=== PATIENT | female | born 1940 | race Caucasian/White ===

== ENCOUNTER 2021-04-14 08:41 | Outpatient (CLI) | payer MEDICARE | END 2021-04-14 08:42 | disposition home or self-care (01) | LOC: BICRAD 08:41 | PROVIDERS: ATTEND Internal Medicine Critical Care Medicine | DX: R06.00 Dyspnea, unspecified (principal); I50.9 Heart failure, unspecified; I70.0 Atherosclerosis of aorta | CPT/HCPCS: 71046 ==

== ENCOUNTER 2021-06-16 12:47 | Outpatient (CLI) | payer MEDICARE ==
[2021-06-16 14:23] LABS: #Eosinphils 0.1 10x3/uL (0.0-0.5); #Monocytes 0.6 10x3/uL (0.0-1.1); #Neutrophils 4.3 10x3/uL (1.5-8.4); %Basophils 0.5 % (0.0-2.0); %Eosinophils 1.7 % (0.0-6.0); %Lymphocytes 22.8 % (18.0-47.0); %Monocytes 8.8 % (0.0-10.0); %Neutrophils 65.9 % (40.0-75.0); Hemoglobin 12.5 g/dL (12.0-15.5); Mean Corpuscular HGB CONC 32.9 g/dL (32.0-36.0); Mean Corpuscular Hemoglobin 31.3 pg (27.0-33.0); Mean Corpuscular Volume 95.2 fl (81.6-98.3); Mean Platelet Volume 9.6 fl (7.4-10.4); Platelet Count 230 10x3/uL (150-450); Red Blood Cell (RBC) Count 3.99 10x6/uL (3.90-5.03); White Blood Cell (WBC) Count 6.5 10x3/uL (3.5-10.5)
[2021-06-16 14:55] LABS: ALT (SGPT) 15 U/L (8-55); AST (SGOT) 18 U/L (5-34); Albumin 4.1 g/dL (3.4-4.8); Alkaline Phosphatase 41 U/L (40-110); Anion Gap 15 mmol/L (10-20); BUN (Urea Nitrogen) 80 mg/dL (9.8-20.1); Bilirubin, Total 0.5 mg/dL (0.2-1.2); Calc. Creatinine Clearance 0 mL/min (70-130); Calcium 10.4 mg/dL (7.8-10.44); Carbon Dioxide 28 mmol/L (23-31); Chloride 100 mmol/L (98-107); Globulin 2.7 g/dL (2.4-3.5); Glucose 219 mg/dL (83-110); Potassium 3.6 mmol/L (3.5-5.1); Protein, Total 6.8 g/dL (5.8-8.1); Sodium 139 mmol/L (136-145)
[2021-06-17 11:15] LABS: SARS-CoV-2 PCR by NAA Not Detected (NotDetected)
== END 2021-06-16 12:48 | disposition home or self-care (01) ==
LOC: LABBT 12:47
PROVIDERS: ATTEND Surgery
DX: Z01.818 Encounter for other preprocedural examination (principal); C50.912 Malignant neoplasm of unspecified site of left female breast; Z20.822 Contact with and (suspected) exposure to COVID-19
CPT/HCPCS: 80053; 85025; 93005; U0003; U0005; 93010

== ENCOUNTER 2021-06-18 07:18 | Day surgery (SDC) | payer MEDICARE ==
[2021-06-17 11:22] VITALS: BMI 36.1
[2021-06-18] MEDS ORDERED: Isosulfan Blue 50 MG/5 ML VIAL ONE (10:00)
[2021-06-18] MEDS ORDERED: Lidocaine 1% w/Epinephrine 1:100K 30 ML VIAL ONE (10:00)
[2021-06-18] MEDS ORDERED: Bupivacaine PF 0.5% 30 ML VIAL ONE (10:00)
[2021-06-18] MEDS ORDERED: Fentanyl 100 MCG/2 ML VIAL ONE (10:17)
[2021-06-18] MEDS ORDERED: Phenylephrine 10 MG/ML VIAL ONE (10:17)
[2021-06-18] MEDS ORDERED: Promethazine HCl 25 MG/ML VIAL ONE (10:17)
[2021-06-18] MEDS ORDERED: PROPOFOL 200 MG/20 ML VIAL ONE (10:39)
[2021-06-18] MEDS ORDERED: Ondansetron PF 4 MG/2 ML Vial ONE (10:39)
[2021-06-18] MEDS ORDERED: Lidocaine 1% PF 5 ML VIAL ONE (10:39)
[2021-06-18 11:13] LABS: ALT (SGPT) 16 U/L (8-55); AST (SGOT) 25 U/L (5-34); Albumin 4.1 g/dL (3.4-4.8); Alkaline Phosphatase 45 U/L (40-110); Anion Gap 16 mmol/L (10-20); BUN (Urea Nitrogen) 64 mg/dL (9.8-20.1); Bilirubin, Total 0.6 mg/dL (0.2-1.2); Calc. Creatinine Clearance 38 mL/min (70-130); Calcium 10.1 mg/dL (7.8-10.44); Carbon Dioxide 26 mmol/L (23-31); Chloride 100 mmol/L (98-107); Globulin 3.3 g/dL (2.4-3.5); Glucose 112 mg/dL (83-110); Potassium 4.1 mmol/L (3.5-5.1); Protein, Total 7.4 g/dL (5.8-8.1); Sodium 138 mmol/L (136-145)
== END 2021-06-18 14:20 | disposition home or self-care (01) ==
LOC: SDC 07:18
PROVIDERS: ATTEND Surgery
PROC: 0HBU0ZZ Excision of Left Breast, Open Approach (ICD-10-PCS; principal; 2021-06-18)
PROC: 07B60ZX Excision of Left Axillary Lymphatic, Open Approach, Diagnostic (ICD-10-PCS; 2021-06-18)
DX: C50.812 Malignant neoplasm of overlapping sites of left female breast (principal); N62 Hypertrophy of breast; N60.12 Diffuse cystic mastopathy of left breast; N60.22 Fibroadenosis of left breast; M19.90 Unspecified osteoarthritis, unspecified site; E78.00 Pure hypercholesterolemia, unspecified; E11.9 Type 2 diabetes mellitus without complications; I11.9 Hypertensive heart disease without heart failure; Z86.73 Personal history of transient ischemic attack (TIA), and cerebral infarction without residual deficits; Z17.0 Estrogen receptor positive status [ER+]; Z79.01 Long term (current) use of anticoagulants; Z79.811 Long term (current) use of aromatase inhibitors; Z79.82 Long term (current) use of aspirin; Z79.899 Other long term (current) drug therapy; Z95.3 Presence of xenogenic heart valve
CPT/HCPCS: 19281; 19301; 38525; 38900; 76098; 78195; 80053; A9541; Q9968; 88307; 88342; J0690; J2370; J2405; J2550; J2704; J3010; S0020

== ENCOUNTER 2022-03-28 16:19 | Inpatient (IN) | payer MEDICARE ==
[2022-03-28] MEDS ORDERED: Ondansetron ODT 4 MG TAB PO PRN (23:49)
[2022-03-28] MEDS ORDERED: Acetaminophen 325 MG TAB PO PRN (23:49)
[2022-03-28] MEDS ORDERED: Ondansetron PF 4 MG/2 ML Vial IVP PRN (23:49)
[2022-03-28] MEDS ORDERED: Furosemide 40 MG/4 ML VIAL SLOW IVP SCH (23:59)
[2022-03-29] MEDS ORDERED: Dextrose 5% in Water 1,000 ML IV PRN (01:43)
[2022-03-29] MEDS ORDERED: HumaLOG 300 UNITS/3 ML VIAL SC PRN ×2 (01:43)
[2022-03-29] MEDS ORDERED: Dextrose 50% Abboject 50 ML SYRINGE SLOW IVP PRN (01:43)
[2022-03-29 03:38] LABS: INR-International Normal Ratio 1.8; Prothrombin Time 20.9 sec (12.0-14.7)
[2022-03-29 03:40] LABS: BUN (Urea Nitrogen) 49 mg/dL (9.8-20.1); Calc. Creatinine Clearance 58 mL/min (70-130); Calcium 9.2 mg/dL (7.8-10.44); Glucose 94 mg/dL (83-110); Magnesium 1.7 mg/dL (1.6-2.6)
[2022-03-29 03:49] LABS: Anion Gap 16 mmol/L (10-20); Carbon Dioxide 37 mmol/L (23-31); Chloride 94 mmol/L (98-107); Potassium 3.5 mmol/L (3.5-5.1); Sodium 143 mmol/L (136-145)
[2022-03-29 04:08] LABS: #Eosinphils 0.2 thou/uL (0.0-0.7); #Lymphocytes 0.9 thou/uL (1.20-3.40); #Monocytes 0.7 thou/uL (0.11-0.59); %Basophils 0.3 % (0.0-1.0); %Eosinophils 2.2 % (0.0-10.0); %Lymphocytes 13.2 % (21.0-51.0); %Monocytes 10.3 % (0.0-10.0); Hemoglobin 11.6 g/dL (12.0-16.0); Mean Corpuscular Hemoglobin 30.2 pg (27.0-31.0); Mean Platelet Volume 7.1 fL (7.4-10.4); Platelet Count 285 thou/uL (130-400); RBC Distribution Width 13.5 % (11.5-14.5); RBC Morphology Normal; Red Blood Cell (RBC) Count 3.83 mill/uL (4.20-5.40); White Blood Cell (WBC) Count 6.8 thou/uL (4.8-10.8)
[2022-03-29 06:46] LABS: INR-International Normal Ratio 1.7; Prothrombin Time 20.6 sec (12.0-14.7)
[2022-03-29] MEDS ORDERED: Furosemide 40 MG/4 ML VIAL SLOW IVP SCH (09:00)
[2022-03-29] MEDS ORDERED: Enoxaparin Sodium 40 MG/0.4 ML SYRINGE SC SCH (09:00)
[2022-03-29] MEDS ORDERED: Warfarin Sodium 5 MG TAB PO SCH (09:00)
[2022-03-29] MEDS: Hydrochlorothiazide 25 MG TAB PO SCH (10:57)
[2022-03-29] MEDS: Anastrozole 1 MG TAB PO SCH (10:57)
[2022-03-29] MEDS: hydrALAZINE 25 MG TAB PO SCH ×3 (10:58→21:30)
[2022-03-29] MEDS: Atenolol 50 MG TAB PO SCH ×2 (11:00→21:30)
[2022-03-29] MEDS: Enoxaparin Sodium 30 MG/0.3 ML SYRINGE SC SCH (11:02)
[2022-03-29] MEDS ORDERED: Furosemide 20 MG/2 ML VIAL SLOW IVP SCH (14:00)
[2022-03-29] MEDS: Warfarin Sodium 5 MG TAB PO SCH (17:34)
[2022-03-30 04:31] LABS: INR-International Normal Ratio 1.8; Prothrombin Time 20.8 sec (12.0-14.7)
[2022-03-30 05:46] LABS: Calcium 9.3 mg/dL (7.8-10.44); Chloride 89 mmol/L (98-107); Glucose 112 mg/dL (83-110); Potassium 3.9 mmol/L (3.5-5.1); Sodium 140 mmol/L (136-145)
[2022-03-30 05:47] LABS: BUN (Urea Nitrogen) 52 mg/dL (9.8-20.1); Calc. Creatinine Clearance 60 mL/min (70-130)
[2022-03-30 06:02] LABS: Carbon Dioxide 42 mmol/L (23-31)
[2022-03-30 06:03] LABS: Anion Gap 13 mmol/L (10-20)
[2022-03-30] MEDS: Furosemide 40 MG/4 ML VIAL SLOW IVP SCH ×2 (06:12→13:35)
[2022-03-30] MEDS: Anastrozole 1 MG TAB PO SCH (09:15)
[2022-03-30] MEDS: hydrALAZINE 25 MG TAB PO SCH ×3 (09:15→21:25)
[2022-03-30] MEDS: Enoxaparin Sodium 30 MG/0.3 ML SYRINGE SC SCH (09:15)
[2022-03-30] MEDS: Hydrochlorothiazide 25 MG TAB PO SCH (09:16)
[2022-03-30] MEDS: Atenolol 50 MG TAB PO SCH ×2 (09:16→21:25)
[2022-03-30] MEDS: Warfarin Sodium 5 MG TAB PO SCH (16:40)
[2022-03-30 23:06] LABS: Base Excess (BEa) 12.1 mEq/L (-2.0 to +3.0); Calcium, Ionized (arterial) 1.16 mmol/L (1.12-1.30); Carboxyhemoglobin (COHb) 0.8 gm% (0.0-3.0); Hemoglobin (Hb) 11.9 g/dL (12.0-16.0); Potassium - ABG Lab 3.15 mmol/L (3.70-5.30); pH, Arterial 7.41 (7.35-7.45)
[2022-03-30 23:08] LABS: CO2 Tension 62.6 mmHg (35.0-45.0)
[2022-03-30 23:09] LABS: O2 Tension (PaO2), arterial 59.8 mmHg (> 60.0); Puncture Site LBR
[2022-03-31 05:05] LABS: BUN (Urea Nitrogen) 50 mg/dL (9.8-20.1); Calc. Creatinine Clearance 57 mL/min (70-130); Calcium 9.3 mg/dL (7.8-10.44); Glucose 123 mg/dL (83-110)
[2022-03-31 05:10] LABS: INR-International Normal Ratio 2.2; Prothrombin Time 25.2 sec (12.0-14.7)
[2022-03-31 05:14] LABS: Anion Gap 15 mmol/L (10-20); Chloride 91 mmol/L (98-107); Potassium 3.3 mmol/L (3.5-5.1); Sodium 144 mmol/L (136-145)
[2022-03-31 05:21] LABS: Carbon Dioxide 41 mmol/L (23-31)
[2022-03-31] MEDS: Furosemide 40 MG/4 ML VIAL SLOW IVP SCH ×2 (06:57→13:27)
[2022-03-31] MEDS: Atenolol 50 MG TAB PO SCH ×2 (09:07→20:55)
[2022-03-31] MEDS: hydrALAZINE 25 MG TAB PO SCH ×3 (09:07→20:54)
[2022-03-31] MEDS: Hydrochlorothiazide 25 MG TAB PO SCH (09:07)
[2022-03-31] MEDS: Anastrozole 1 MG TAB PO SCH (09:07)
[2022-03-31] MEDS: Enoxaparin Sodium 30 MG/0.3 ML SYRINGE SC SCH (09:07)
[2022-03-31] MEDS ORDERED: AcetaZOLAMIDE 250 MG TAB PO SCH (10:15)
[2022-03-31 12:44] LABS: Base Excess 18.7 mEq/L (-2.0 to +3.0); Calcium, Ionized (venous) 1.07 mmol/L (1.16-1.32); Chloride (VBG) 89 mmol/L (98-106); Hemoglobin (Hb) 13.7 g/dL (11.7-16.1); pH (venous) 7.43 (7.32-7.43)
[2022-03-31 12:47] LABS: Actual Bicarbonate (HCO3v) 47 mEq/L (22-28)
[2022-03-31] MEDS: Warfarin Sodium 5 MG TAB PO SCH (17:11)
[2022-04-01 03:52] LABS: Prothrombin Time 31.6 sec (12.0-14.7)
[2022-04-01] MEDS: Furosemide 40 MG/4 ML VIAL SLOW IVP SCH ×2 (05:54→15:22)
[2022-04-01] MEDS: Hydrochlorothiazide 25 MG TAB PO SCH (09:07)
[2022-04-01] MEDS: Atenolol 50 MG TAB PO SCH ×2 (09:07→20:39)
[2022-04-01] MEDS: Anastrozole 1 MG TAB PO SCH (09:07)
[2022-04-01] MEDS: hydrALAZINE 25 MG TAB PO SCH ×3 (09:07→20:38)
[2022-04-01 10:35] VITALS: BMI 36.8
[2022-04-01 12:19] LABS: Anion Gap 19 mmol/L (10-20); BUN (Urea Nitrogen) 47 mg/dL (9.8-20.1); Calc. Creatinine Clearance 51 mL/min (70-130); Calcium 9.7 mg/dL (7.8-10.44); Carbon Dioxide 36 mmol/L (23-31); Chloride 89 mmol/L (98-107); Glucose 116 mg/dL (83-110); Sodium 139 mmol/L (136-145)
[2022-04-01 12:37] LABS: Band 10 % (5-11); Hemoglobin 12.6 g/dL (12.0-16.0); Lymphocytes 9 % (21-51); MDiff Complete? YES; Mean Corpuscular HGB CONC 29.7 g/dL (32.0-36.0); Mean Corpuscular Hemoglobin 30.1 pg (27.0-31.0); Mean Platelet Volume 7.6 fL (7.4-10.4); Metamyelocyte 1 % (0-0); Monocytes 4 % (0-10); Neutrophil 76 % (42-75); Platelet Count 322 thou/uL (130-400); Platelet Morphology Comment Appears Adequate; Polychromasia SLIGHT = 2-3 cells (100X) (0-2/hpf); RBC Distribution Width 14.3 % (11.5-14.5); Red Blood Cell (RBC) Count 4.18 mill/uL (4.20-5.40); White Blood Cell (WBC) Count 9.1 thou/uL (4.8-10.8)
[2022-04-01] MEDS ORDERED: Warfarin Sodium 2.5 MG TAB PO SCH (17:00)
[2022-04-02 05:10] LABS: #Eosinphils 0.1 thou/uL (0.0-0.7); #Lymphocytes 0.9 thou/uL (1.20-3.40); #Monocytes 0.8 thou/uL (0.11-0.59); #Neutrophils 5.3 thou/uL (1.40-6.50); %Basophils 0.6 % (0.0-1.0); %Lymphocytes 13.1 % (21.0-51.0); %Monocytes 10.9 % (0.0-10.0); %Neutrophils 74.4 % (42.0-75.0); Hemoglobin 12.3 g/dL (12.0-16.0); Mean Corpuscular HGB CONC 29.6 g/dL (32.0-36.0); Mean Corpuscular Hemoglobin 29.9 pg (27.0-31.0); Mean Platelet Volume 7.5 fL (7.4-10.4); Platelet Count 278 thou/uL (130-400); RBC Distribution Width 14.3 % (11.5-14.5); Red Blood Cell (RBC) Count 4.11 mill/uL (4.20-5.40); White Blood Cell (WBC) Count 7.1 thou/uL (4.8-10.8)
[2022-04-02 05:15] LABS: INR-International Normal Ratio 3.5
[2022-04-02 05:29] LABS: BUN (Urea Nitrogen) 48 mg/dL (9.8-20.1); Calc. Creatinine Clearance 55 mL/min (70-130); Calcium 9.6 mg/dL (7.8-10.44); Glucose 115 mg/dL (83-110); Magnesium 1.7 mg/dL (1.6-2.6)
[2022-04-02 05:40] LABS: Anion Gap 16 mmol/L (10-20); Carbon Dioxide 40 mmol/L (23-31); Chloride 86 mmol/L (98-107); Potassium 3.1 mmol/L (3.5-5.1); Sodium 139 mmol/L (136-145)
[2022-04-02] MEDS: Furosemide 40 MG/4 ML VIAL SLOW IVP SCH ×2 (05:49→15:05)
[2022-04-02] MEDS: Anastrozole 1 MG TAB PO SCH (10:30)
[2022-04-02] MEDS: Atenolol 50 MG TAB PO SCH ×2 (10:31→20:15)
[2022-04-02] MEDS: hydrALAZINE 25 MG TAB PO SCH ×3 (10:32→20:15)
[2022-04-02] MEDS: Hydrochlorothiazide 25 MG TAB PO SCH (10:33)
[2022-04-03 04:52] LABS: #Eosinphils 0.1 thou/uL (0.0-0.7); #Lymphocytes 0.9 thou/uL (1.20-3.40); #Monocytes 0.7 thou/uL (0.11-0.59); #Neutrophils 5.9 thou/uL (1.40-6.50); %Basophils 0.1 % (0.0-1.0); %Eosinophils 1.1 % (0.0-10.0); %Lymphocytes 12.1 % (21.0-51.0); %Monocytes 8.9 % (0.0-10.0); %Neutrophils 77.8 % (42.0-75.0); Hemoglobin 11.7 g/dL (12.0-16.0); Mean Corpuscular HGB CONC 30.3 g/dL (32.0-36.0); Mean Corpuscular Hemoglobin 30.3 pg (27.0-31.0); Mean Corpuscular Volume 99.8 fL (78.0-98.0); Mean Platelet Volume 7.3 fL (7.4-10.4); Platelet Count 321 thou/uL (130-400); RBC Distribution Width 14.3 % (11.5-14.5); Red Blood Cell (RBC) Count 3.86 mill/uL (4.20-5.40); White Blood Cell (WBC) Count 7.6 thou/uL (4.8-10.8)
[2022-04-03 05:02] LABS: INR-International Normal Ratio 3.7; Prothrombin Time 37.6 sec (12.0-14.7)
[2022-04-03] MEDS: Furosemide 40 MG/4 ML VIAL SLOW IVP SCH (05:07)
[2022-04-03 05:15] LABS: BUN (Urea Nitrogen) 47 mg/dL (9.8-20.1); Calc. Creatinine Clearance 58 mL/min (70-130); Calcium 9.4 mg/dL (7.8-10.44); Glucose 98 mg/dL (83-110)
[2022-04-03 05:18] LABS: Carbon Dioxide Greater than 37 mmol/L (23-31); Chloride 85 mmol/L (98-107); Potassium 2.7 mmol/L (3.5-5.1); Sodium 138 mmol/L (136-145)
[2022-04-03 06:53] LABS: Magnesium 1.7 mg/dL (1.6-2.6)
[2022-04-03] MEDS ORDERED: acetaZOLAMIDE Sodium 500 mg Vial IVP SCH (09:00)
[2022-04-03] MEDS: hydrALAZINE 25 MG TAB PO SCH (10:11)
[2022-04-03] MEDS: Atenolol 50 MG TAB PO SCH (10:11)
[2022-04-03] MEDS: Anastrozole 1 MG TAB PO SCH (10:11)
[2022-04-03] MEDS ORDERED: Potassium Chloride 20 MEQ TAB PO SCH (11:00)
[2022-04-03 12:10] VITALS: BP 153/59; TEMP 97.9
[2022-04-03] MEDS ORDERED: EPINEPHrine 1 MG/10 ML Abboject SYRINGE ONE ×3 (12:29→13:22)
[2022-04-03] MEDS ORDERED: Sodium Bicarb 50 MEQ/50 ML Abboject 8.4% SYRINGE ONE (12:29)
[2022-04-03 13:08] LABS: Hemoglobin 13.8 g/dL (12.0-16.0); Mean Corpuscular HGB CONC 30.3 g/dL (32.0-36.0); Mean Corpuscular Hemoglobin 30.6 pg (27.0-31.0); Mean Platelet Volume 7.6 fL (7.4-10.4); Platelet Count 304 thou/uL (130-400); RBC Distribution Width 14.7 % (11.5-14.5); Red Blood Cell (RBC) Count 4.52 mill/uL (4.20-5.40); White Blood Cell (WBC) Count 16.8 thou/uL (4.8-10.8)
[2022-04-03 13:17] LABS: Actual Bicarbonate (HCO3a) 42.7 mEq/L (22-28); Base Excess (BEa) 12.3 mEq/L (-2.0 to +3.0); CO2 Tension 86.9 mmHg (35.0-45.0); Calcium, Ionized (arterial) 1.02 mmol/L (1.12-1.30); Carboxyhemoglobin (COHb) 1.3 gm% (0.0-3.0); Hemoglobin (Hb) 14.1 g/dL (12.0-16.0); Potassium - ABG Lab 2.98 mmol/L (3.70-5.30); pH, Arterial 7.31 (7.35-7.45)
[2022-04-03 13:18] LABS: O2 Tension (PaO2), arterial 51.6 mmHg (> 60.0); Puncture Site RBA
[2022-04-03 13:19] LABS: ALV-art Gradient 552.775 mmHg (0-20)
[2022-04-03] MEDS ORDERED: Albumin 5% 0 ML ONE (13:19)
[2022-04-03 13:28] LABS: Band 9 % (5-11); Lymphocytes 27 % (21-51); MDiff Complete? YES; Macrocytosis SLIGHT = 6-15 cells (100X) (0-5/hpf); Metamyelocyte 1 % (0-0); Monocytes 6 % (0-10); Neutrophil 56 % (42-75); Platelet Morphology Comment Appears Adequate; Polychromasia SLIGHT = 2-3 cells (100X) (0-2/hpf); Reactive Lymphocytes 1 % (0-10)
[2022-04-03 13:30] LABS: Anion Gap 19 mmol/L (10-20); BUN (Urea Nitrogen) 46 mg/dL (9.8-20.1); Calc. Creatinine Clearance 43 mL/min (70-130); Calcium 9.1 mg/dL (7.8-10.44); Carbon Dioxide 36 mmol/L (23-31); Chloride 86 mmol/L (98-107); Glucose 200 mg/dL (83-110); Sodium 138 mmol/L (136-145)
[2022-04-03 13:36] LABS: Troponin I 0.056 ng/mL (< 0.028)
[2022-04-03 13:39] LABS: Potassium 2.7 mmol/L (3.5-5.1)
[2022-04-03] MEDS ORDERED: Magnesium 2 GM/50 ML(in water) 2 GM in Premix Bag 1 BAG IVPB SCH (14:00)
[2022-04-03] MEDS ORDERED: Potassium Chloride 40 MEQ in Premix Bag 1 BAG IVPB SCH (14:00)
[2022-04-03] MEDS ORDERED: Phytonadione 10 MG/ML AMP IM SCH (14:00)
[2022-04-03] MEDS ORDERED: Warfarin Sodium 2.5 MG TAB PO SCH (17:00)
[2022-04-04 15:57] LABS: ANA Symphony (Qualitative) Negative (Negative); ANA Symphony (Quantitative) 0.5 Ratio (< 0.7 Negative); dsDNA IgG Antibody 1.8 IU/mL (<10 Negative)
[2022-04-04] MEDS ORDERED: Warfarin Sodium 2.5 MG TAB PO SCH (17:00)
== END 2022-04-03 13:35 | disposition expired | DRG 291 ==
LOC: 2NO 18:34 → OBSVTOIN 23:49 → CCU 04-03 13:19
PROVIDERS: ADMIT Family Medicine; ATTEND Internal Medicine
PROC: 5A09457 Assistance with Respiratory Ventilation, 24-96 Consecutive Hours, Continuous Positive Airway Pressure (ICD-10-PCS; principal; 2022-03-31)
PROC: 5A12012 Performance of Cardiac Output, Single, Manual (ICD-10-PCS; 2022-04-03)
PROC: 0BH17EZ Insertion of Endotracheal Airway into Trachea, Via Natural or Artificial Opening (ICD-10-PCS; 2022-04-03)
PROC: 5A1935Z Respiratory Ventilation, Less than 24 Consecutive Hours (ICD-10-PCS; 2022-04-03)
PROC: 3E033XZ Introduction of Vasopressor into Peripheral Vein, Percutaneous Approach (ICD-10-PCS; 2022-04-03)
DX: I11.0 Hypertensive heart disease with heart failure (principal); I50.33 Acute on chronic diastolic (congestive) heart failure; J96.21 Acute and chronic respiratory failure with hypoxia; J96.22 Acute and chronic respiratory failure with hypercapnia; C64.9 Malignant neoplasm of unspecified kidney, except renal pelvis; E87.3 Alkalosis; E66.2 Morbid (severe) obesity with alveolar hypoventilation; S27.329A Contusion of lung, unspecified, initial encounter; J93.9 Pneumothorax, unspecified; M96.89 Other intraoperative and postprocedural complications and disorders of the musculoskeletal system; Z20.822 Contact with and (suspected) exposure to COVID-19; I35.0 Nonrheumatic aortic (valve) stenosis; E11.9 Type 2 diabetes mellitus without complications; I48.0 Paroxysmal atrial fibrillation; I27.20 Pulmonary hypertension, unspecified; E87.6 Hypokalemia; I46.8 Cardiac arrest due to other underlying condition; R00.1 Bradycardia, unspecified; T17.928A Food in respiratory tract, part unspecified causing other injury, initial encounter; Y84.8 Other medical procedures as the cause of abnormal reaction of the patient, or of later complication, without mention of misadventure at the time of the procedure; Z95.2 Presence of prosthetic heart valve; Z79.899 Other long term (current) drug therapy; Z90.49 Acquired absence of other specified parts of digestive tract; Z90.09 Acquired absence of other part of head and neck; Z82.49 Family history of ischemic heart disease and other diseases of the circulatory system; Z98.890 Other specified postprocedural states; Z68.36 Body mass index [BMI] 36.0-36.9, adult; Z79.01 Long term (current) use of anticoagulants
CPT/HCPCS: 36415; 36416; 36600; 71045; 80048; 82805; 83735; 83880; 84484; 85025; 85610; 86038; 86225; 93306; 94002; 94660; J1120; J1650; J1815; J1940; U0003; U0005